=== PATIENT | male | born 1960 | race Caucasian/White ===

== ENCOUNTER 2017-02-13 05:48 | Inpatient (IN) | payer MEDICARE ==
[2017-02-12 10:02] VITALS: BP 117/70
[2017-02-12 10:46] LABS: HEMATOCRIT 44.7 % (39.2-51.8); HEMOGLOBIN 15.4 g/dL (13.7-18.0); WHITE BLOOD COUNT 5.4 x10^3/uL (3.4-10)
[2017-02-12 10:52] LABS: BLOOD UREA NITROGEN 15 mg/dL (7-18)
[~2017-02-13] VITALS: Ht 182.9 cm; Wt 72.2 kg
[~2017-02-13 05:48] MED LIST: DIAZ10TA PO; MORP30TA3 PO; OXYC10TA6 PO
[2017-02-13] MEDS ORDERED: LACTATED RINGERS 1,000 ML IV SCH (06:20)
[2017-02-13] MEDS ORDERED: LIDOCAINE 1%, 2ML SQ PRN (06:30)
[2017-02-13] MEDS ORDERED: BUPIVACAINE/PF 0.5% ONE (06:49)
[2017-02-13] MEDS ORDERED: TRANEXAMIC ACID 100 MG/ML, 10ML ONE (06:49)
[2017-02-13] MEDS ORDERED: VANCOMYCIN 1,000 MG ONE (06:49)
[2017-02-13] MEDS ORDERED: THROMBIN 5,000 UNIT VIAL TP ONE (06:49)
[2017-02-13] MEDS ORDERED: LIDOCAINE/MPF 2%-EPI 1:200K, 20 ML ONE (06:49)
[2017-02-13] MEDS ORDERED: BACITRACIN 50,000 UNIT ONE (06:50)
[2017-02-13] MEDS ORDERED: EPINEPHRINE 1 MG/ML, 1ML ONE (06:50)
[2017-02-13] MEDS ORDERED: FENTANYL PF 100 MCG/2ML ONE ×2 (07:01)
[2017-02-13] MEDS ORDERED: MIDAZOLAM 1 MG/ML, 2ML ONE (07:01)
[2017-02-13] MEDS ORDERED: HYDROmorphone 1 MG/ML, 1ML ONE (07:02)
[2017-02-13] MEDS ORDERED: GLYCOPYRROLATE 0.2MG/1ML, 5ML ONE (07:03)
[2017-02-13] MEDS ORDERED: PROPOFOL 50 ML ONE (07:03)
[2017-02-13] MEDS ORDERED: ONDANSETRON 2MG/ML, 2ML ONE (07:03)
[2017-02-13] MEDS ORDERED: SUCCINYLCHOLINE 20 MG/ML, 10ML ONE ×2 (07:03)
[2017-02-13] MEDS ORDERED: ROCURONIUM 10 MG/ML ONE (07:03)
[2017-02-13] MEDS ORDERED: PROPOFOL 10 MG/ML, 20ML ONE (07:03)
[2017-02-13] MEDS ORDERED: DEXAMETHASONE 4 MG/ML, 1ML ONE (07:03)
[2017-02-13] MEDS ORDERED: NEOSTIGMINE 1 MG/ML, 10ML ONE (07:03)
[2017-02-13] MEDS ORDERED: CEFAZOLIN 1,000 MG ONE (07:03)
[2017-02-13] MEDS ORDERED: HYDROmorphone 2 MG/ML, 1ML ONE ×3 (07:58→10:43)
[2017-02-13] MEDS ORDERED: ACETAMINOPHEN 325 MG TABLET PO PRN (08:00)
[2017-02-13] MEDS ORDERED: ONDANSETRON 2MG/ML, 2ML IVPush PRN (08:00)
[2017-02-13] MEDS ORDERED: MIDAZOLAM 1 MG/ML, 2ML IV PRN (08:00)
[2017-02-13] MEDS ORDERED: HYDROcodone/APAP 7.5-325MG/15ML UDC PO PRN (08:00)
[2017-02-13] MEDS ORDERED: FENTANYL PF 100 MCG/2ML IV PRN (08:00)
[2017-02-13] MEDS ORDERED: PROMETHAZINE 25 MG/ML, 1ML IV PRN (08:00)
[2017-02-13] MEDS ORDERED: OXYcodone 5 MG/5 ML ORAL.SOL UDC PO PRN (08:00)
[2017-02-13] MEDS ORDERED: LIDOCAINE 2%-EPI 1:100K, 20ML INFIL ONE (08:10)
[2017-02-13] MEDS ORDERED: BACITRACIN 50,000 UNIT IM ONE (08:11)
[2017-02-13] MEDS ORDERED: BUPIVACAINE/PF-EPI 0.5% 1:200K INFIL ONE (08:12)
[2017-02-13] MEDS: HYDROmorphone 1 MG/ML, 1ML IV PRN ×8 (10:18→11:06)
[2017-02-13 11:20] VITALS: BP 147/86
[2017-02-13] MEDS ORDERED: OXYcodone IR 5MG TABLET PO PRN (12:00)
[2017-02-13 14:21] VITALS: BP 138/82
[2017-02-13] MEDS ORDERED: CEFAZOLIN PMX 1GM/50ML 50 ML IV ONE (15:30)
[2017-02-13 15:44] VITALS: BP 136/68
== END 2017-02-13 16:37 | disposition home or self-care (01) | DRG 472 ==
LOC: ORIP 05:48 → 4NOR 11:24 → DCLOUNGE 15:47
PROVIDERS: ADMIT Orthopaedic Surgery Orthopaedic Surgery of the Spine; ATTEND Orthopaedic Surgery Orthopaedic Surgery of the Spine
PROC: 0RB30ZZ Excision of Cervical Vertebral Disc, Open Approach (ICD-10-PCS; 2017-02-13)
PROC: 4A11X4G Monitoring of Peripheral Nervous Electrical Activity, Intraoperative, External Approach (ICD-10-PCS; 2017-02-13)
PROC: 0RG10A0 Fusion of Cervical Vertebral Joint with Interbody Fusion Device, Anterior Approach, Anterior Column, Open Approach (ICD-10-PCS; principal; 2017-02-13 07:30)
DX: M50.121 Cervical disc disorder at C4-C5 level with radiculopathy (principal); M50.021 Cervical disc disorder at C4-C5 level with myelopathy; M48.02 Spinal stenosis, cervical region
CPT/HCPCS: 36415; 71020; 72040; 80048; 81003; 85025; 93005; C1713; J0171; J0690; J1100; J1170; J2250; J2405; J2704; J2710; J3010; J3370; J3490; C1762; J0330; J7120